=== PATIENT | female | born 1985 | race Caucasian/White ===

== ENCOUNTER → 2016-06-14 | Outpatient (CLI) | payer OTHER ==
[~2016-06-14] MED LIST: GADOBUTROL 10 MMOL/10 ML VIAL ONE
== END | disposition home or self-care (01) ==
LOC: CFH 07:21 → MERGE 07:45
PROVIDERS: ATTEND Internal Medicine Endocrinology, Diabetes & Metabolism
DX: E22.1 Hyperprolactinemia (principal); Z98.890 Other specified postprocedural states
CPT/HCPCS: 70553; A9585

== ENCOUNTER 2017-08-25 08:55 | Emergency (ER) | payer MEDICAID, OTHER ==
[~2017-08-25] VITALS: Ht 152.4 cm; Wt 64.4 kg
[2017-08-25 08:56] VITALS: BP 122/73
== END 2017-08-25 10:30 | disposition home or self-care (01) ==
LOC: ED 09:43
DX: O26.892 Other specified pregnancy related conditions, second trimester (principal); H57.11 Ocular pain, right eye; Z3A.26 26 weeks gestation of pregnancy
CPT/HCPCS: 96372; 99283; 99284

== ENCOUNTER 2017-12-04 05:16 | Inpatient (IN) | payer MEDICAID ==
[~2017-12-04] VITALS: Ht 152.4 cm; Wt 68.1 kg
[2017-12-04] MEDS ORDERED: LACTATED RINGERS 1,000 ML IV SCH ×2 (05:21→09:08)
[2017-12-04] MEDS ORDERED: OXYTOCIN 30U/ 0.9% NaCL 500ML 500 ML IV ONE (05:21)
[2017-12-04] MEDS ORDERED: CALCIUM CARBONATE 500 MG TAB.CHEW PO PRN (05:30)
[2017-12-04] MEDS ORDERED: FENTANYL PF 100 MCG/2ML IV PRN (05:30)
[2017-12-04] MEDS ORDERED: ONDANSETRON 2MG/ML, 2ML IVPush PRN (05:30)
[2017-12-04] MEDS ORDERED: FENTANYL PF 100 MCG/2ML IVPush PRN (05:30)
[2017-12-04 05:37] VITALS: BP 131/76
[2017-12-04] MEDS ORDERED: NEWBORN KIT ONE (05:39)
[2017-12-04] MEDS ORDERED: PREN-3 PO (05:45)
[2017-12-04 06:02] LABS: BASOPHILS # (AUTO) 0.04 x10^3/uL (0-0.1); BASOPHILS % (AUTO) 0 % (0-1); EOSINOPHILS # (AUTO) 0.11 x10^3/uL (0-0.4); EOSINOPHILS % (AUTO) 1 % (1-7); LYMPHOCYTES # (AUTO) 1.91 x10^3/uL (1-3.4); LYMPHOCYTES % (AUTO) 19 % (22-44); MD NO; MEAN CORPUSCULAR HEMOGLOBIN 31.2 pg (27.0-34.8); MEAN CORPUSCULAR HGB CONC 34.3 g/dL (32.4-35.8); MEAN CORPUSCULAR VOLUME 90.9 fL (80-100); MEAN PLATELET VOLUME 9.1 fL (7.4-10.4); MONOCYTES # (AUTO) 0.53 x10^3/uL (0.2-0.8); MONOCYTES % (AUTO) 5 % (2-9); NEUTROPHILS # (AUTO) 7.72 x10^3/uL (1.8-6.8); NEUTROPHILS % (AUTO) 75 % (42-75); PLATELET COUNT 186 x10^3/uL (130-400); RED BLOOD COUNT 4.02 x10^6/uL (3.82-5.3)
[2017-12-04] MEDS ORDERED: MISOPROSTOL 200 MCG TABLET ONE (07:03)
[2017-12-04] MEDS ORDERED: OXYTOCIN 30U/ 0.9% NaCL 500ML 500 ML ONE (07:03)
[2017-12-04] MEDS ORDERED: LIDOCAINE/PF 1%, 30ML ONE (07:03)
[2017-12-04] MEDS ORDERED: OXYTOCIN 30U/ 0.9% NaCL 500ML 500 ML IV PRN (07:20)
[2017-12-04] MEDS ORDERED: FENTANYL/BUPIV./NS/PF 250 ML EPIDCONT SCH (09:08)
[2017-12-04] MEDS ORDERED: FENTANYL/BUPIV./NS/PF 250 ML EPIDCONT ONE (09:30)
[2017-12-04] MEDS ORDERED: LACTATED RINGERS 1,000 ML IVBOLUS PRN (09:30)
[2017-12-04] MEDS ORDERED: LIDOCAINE/PF 1.5%-EPI 1:200K, 30ML ONE (09:30)
[2017-12-04] MEDS ORDERED: FENTANYL PF 500 MCG, BUPIVACAINE/PF 0.5%, 30ML 62.5 ML in SODIUM CHLORIDE 0.9% 177.5 ML EPIDCONT SCH (09:30)
[2017-12-04] MEDS ORDERED: BUPIVACAINE/PF 0.5% ONE (09:42)
[2017-12-04] MEDS ORDERED: D5%-LACTATED RINGERS 1,000 ML IV SCH (11:29)
[2017-12-04] MEDS ORDERED: IBUPROFEN 600 MG TABLET ONE (12:45)
[2017-12-04] MEDS: IBUPROFEN 600 MG TABLET PO PRN ×2 (12:50→21:01)
[2017-12-04] MEDS: OXYTOCIN 30U/ 0.9% NaCL 500ML 500 ML IV SCH ×2 (13:16→23:16)
[2017-12-04] MEDS ORDERED: GLYCERIN ADULT SUPP PR PRN (13:30)
[2017-12-04] MEDS ORDERED: OXYcodone IR 5MG TABLET PO PRN (13:30)
[2017-12-04] MEDS ORDERED: ACETAMINOPHEN 325 MG TABLET PO PRN (13:30)
[2017-12-04] MEDS ORDERED: CARBOPROST TROMETHAMINE 250 MCG/ML, 1ML IM PRN (13:30)
[2017-12-04] MEDS ORDERED: ONDANSETRON 2MG/ML, 2ML IV PRN (13:30)
[2017-12-04] MEDS ORDERED: MISOPROSTOL 200 MCG TABLET PR PRN (13:30)
[2017-12-04] MEDS ORDERED: METHYLERGONOVINE 0.2 MG/ML IM PRN (13:30)
[2017-12-04] MEDS ORDERED: BISACODYL 10 MG SUPP PR PRN (13:30)
[2017-12-04 19:25] VITALS: BP 116/78
[2017-12-04 20:37] LABS: MEAN CORPUSCULAR HEMOGLOBIN 31.2 pg (27.0-34.8); MEAN CORPUSCULAR HGB CONC 33.9 g/dL (32.4-35.8); MEAN CORPUSCULAR VOLUME 92.1 fL (80-100); MEAN PLATELET VOLUME 8.9 fL (7.4-10.4); PLATELET COUNT 176 x10^3/uL (130-400); RED CELL DISTRIBUTION WIDTH 13.4 % (9.6-15.2)
[2017-12-04 20:51] LABS: BASOPHILS # (AUTO) 0.03 x10^3/uL (0-0.1); BASOPHILS % (AUTO) 0 % (0-1); EOSINOPHILS # (AUTO) 0.06 x10^3/uL (0-0.4); EOSINOPHILS % (AUTO) 0 % (1-7); LYMPHOCYTES # (AUTO) 1.81 x10^3/uL (1-3.4); LYMPHOCYTES % (AUTO) 13 % (22-44); MD SCAN; MONOCYTES # (AUTO) 0.65 x10^3/uL (0.2-0.8); MONOCYTES % (AUTO) 5 % (2-9); NEUTROPHILS # (AUTO) 11.71 x10^3/uL (1.8-6.8); NEUTROPHILS % (AUTO) 82 % (42-75)
[2017-12-04] MEDS: DOCUSATE 100 MG CAPSULE PO PRN (21:01)
[2017-12-04] MEDS: OXYcodone/APAP 5/325MG TABLET PO PRN (22:04)
[2017-12-05 00:05] VITALS: BP 98/60
[2017-12-05 03:31] VITALS: BP 104/71
[2017-12-05] MEDS: IBUPROFEN 600 MG TABLET PO PRN ×2 (05:34→13:48)
[2017-12-05] MEDS: OXYcodone/APAP 5/325MG TABLET PO PRN ×2 (05:34→13:48)
[2017-12-05 08:00] VITALS: BP 100/63
[2017-12-05] MEDS ORDERED: FLU VACCINE PER PHARMACY IM ONE (08:00)
[2017-12-05] MEDS: DOCUSATE 100 MG CAPSULE PO PRN (08:00)
[2017-12-05] MEDS ORDERED: PRENATAL VIT/IRON/FA 1 EACH TABLET PO SCH (09:00)
[2017-12-05] MEDS: OXYTOCIN 30U/ 0.9% NaCL 500ML 500 ML IV SCH (09:16)
[2017-12-05] MEDS ORDERED: IBUP-1222 PO (10:42)
[2017-12-05] MEDS ORDERED: OXYC-302 PO (10:43)
== END 2017-12-05 14:20 | disposition home or self-care (01) | DRG 807 ==
LOC: LDIP 05:16 → 2NW 17:46
PROVIDERS: ADMIT Student in an Organized Health Care Education/Training Program; ATTEND Student in an Organized Health Care Education/Training Program
PROC: 10E0XZZ Delivery of Products of Conception, External Approach (ICD-10-PCS; principal; 2017-12-04)
PROC: 0HQ9XZZ Repair Perineum Skin, External Approach (ICD-10-PCS; 2017-12-04)
PROC: 3E0R3BZ Introduction of Anesthetic Agent into Spinal Canal, Percutaneous Approach (ICD-10-PCS; 2017-12-04)
PROC: 00HU33Z Insertion of Infusion Device into Spinal Canal, Percutaneous Approach (ICD-10-PCS; 2017-12-04)
DX: O69.81X0 Labor and delivery complicated by cord around neck, without compression, not applicable or unspecified (principal); Z37.0 Single live birth; O70.0 First degree perineal laceration during delivery; Z3A.40 40 weeks gestation of pregnancy; Z83.3 Family history of diabetes mellitus
CPT/HCPCS: 36415; J7121; 85025; 86850; 86900; 90656; G0378; J3490; J2590; J3010; J7120

== ENCOUNTER 2018-05-24 15:30 | Outpatient (CLI) | payer OTHER ==
[~2018-05-24 15:30] MED LIST changes: -GADOBUTROL 10 MMOL/10 ML VIAL ONE; +IBUP-1222 PO; +OXYC-302 PO; +PREN-3 PO
[2018-05-24] MEDS ORDERED: BROM5CAP12 PO (15:49)
== END 2018-05-24 23:59 | disposition home or self-care (01) ==
LOC: STAR 15:30
PROVIDERS: ATTEND Student in an Organized Health Care Education/Training Program
DX: Z02.9 Encounter for administrative examinations, unspecified (principal)

== ENCOUNTER 2018-05-30 05:49 | Day surgery (SDC) | payer OTHER ==
[~2018-05-30] VITALS: Ht 152.4 cm; Wt 58.0 kg
[~2018-05-30 05:49] MED LIST changes: +BROM5CAP12 PO
[2018-05-30 06:16] VITALS: BP 114/77
[2018-05-30] MEDS ORDERED: BIRTH CONTROL PO (06:18)
[2018-05-30] MEDS ORDERED: LACTATED RINGERS 1,000 ML IV SCH (06:18)
[2018-05-30 06:28] LABS: HCG UR SG 1.027 (1.003-1.030)
[2018-05-30] MEDS ORDERED: BUPIVACAINE/PF 0.25% ONE (06:46)
[2018-05-30] MEDS ORDERED: ACETAMINOPHEN 500 MG TABLET PO ONE (07:00)
[2018-05-30] MEDS ORDERED: HYDROmorphone 2 MG/ML, 1ML IVPush PRN (07:00)
[2018-05-30] MEDS ORDERED: GABAPENTIN 300 MG CAPSULE PO ONE (07:00)
[2018-05-30] MEDS ORDERED: MEPERIDINE/PF 25MG/0.5ML IVPush PRN (07:00)
[2018-05-30] MEDS ORDERED: OXYcodone 5 MG/5 ML ORAL.SOL UDC PO PRN (07:00)
[2018-05-30] MEDS ORDERED: LORazepam 2 MG/ML, 1ML IVPush PRN (07:00)
[2018-05-30] MEDS ORDERED: METOCLOPRAMIDE 5 MG/ML, 2ML IV PRN (07:00)
[2018-05-30] MEDS ORDERED: ONDANSETRON ODT 8 MG PO ONE (07:00)
[2018-05-30] MEDS ORDERED: MIDAZOLAM 1 MG/ML, 2ML ONE (07:10)
[2018-05-30] MEDS ORDERED: FENTANYL PF 100 MCG/2ML ONE ×2 (07:11→08:34)
[2018-05-30] MEDS ORDERED: GLYCOPYRROLATE 0.2MG/1ML, 5ML ONE (07:22)
[2018-05-30] MEDS ORDERED: NEOSTIGMINE 1 MG/ML, 10ML ONE (07:22)
[2018-05-30] MEDS ORDERED: PROPOFOL 10 MG/ML, 20ML ONE (07:22)
[2018-05-30] MEDS ORDERED: DEXAMETHASONE 4 MG/ML, 1ML ONE (07:22)
[2018-05-30] MEDS ORDERED: ROCURONIUM 10 MG/ML,10ML ONE (07:22)
[2018-05-30] MEDS ORDERED: SUCCINYLCHOLINE 20 MG/ML, 10ML ONE (07:22)
[2018-05-30] MEDS ORDERED: EPINEPHRINE 1 MG/ML, 1ML ONE (07:29)
[2018-05-30] MEDS ORDERED: OXYcodone 5 MG/5 ML ORAL.SOL UDC ONE (08:31)
[2018-05-30] MEDS: FENTANYL PF 100 MCG/2ML IV PRN ×2 (08:36→08:50)
== END 2018-05-30 11:40 | disposition home or self-care (01) ==
LOC: OUT 05:49
PROVIDERS: ATTEND Student in an Organized Health Care Education/Training Program
DX: Z30.2 Encounter for sterilization (principal)
CPT/HCPCS: 58670; 81025; 88302; J0171; J0330; J1100; J2250; J2704; J2710; J3010; J3490; J7120; Q0162